=== PATIENT | female | born 1955 | race Caucasian/White ===

== ENCOUNTER 2017-07-14 22:08 | Emergency (ER) | payer MEDICAID, MEDICARE ==
[2017-07-14] MEDS ORDERED: Sodium Chloride 0.9% 10 ML Syringe FLUSH PRN (22:54)
[2017-07-14] MEDS ORDERED: Prochlorperazine 10 MG/2 ML SDV IVPUSH ONE (22:54)
[2017-07-14] MEDS ORDERED: Sodium Chloride 0.9% 1,000 ML IV SCH (23:00)
--- NOTE | 2017-07-15 00:40 | EDM.PDOC ---
ED HPI GENERAL MEDICAL PROBLEM - General Chief Complaint: Genitourinary Problem Stated Complaint: ILLNESS Time Seen by Provider: 07/14/17 22:47 Source of Information: Reports: Patient, Family History Limitations: Reports: No Limitations - History of Present Illness INITIAL COMMENTS - FREE TEXT/NARRATIVE: This patient comes in with the complaint of vomiting diarrhea and fever for 2 days. She said she vomits everything she eats or drinks. She did hold down some breakfast this morning but other than that the vomiting is frequent. She's had copious watery diarrhea for 2 days also. She's had a low-grade fever off and on. Some people thought that she had a seizure earlier today because you're a couple of episodes where she would sort of stare into space and drool a little bit but there is never any kind of tonic-clonic activity. She does have seizures since a stroke several years ago. This lady denies body aches area she coughs a little bit but that's just after she vomits. She denies sore throat she denies abdominal pain and there are no urinary symptoms. This patient's also had some bariatric surgery and I'm uncertain whether or not this was a Joseph -en-Y - Related Data Allergies Allergy/AdvReac Type Severity Reaction Status Date / Time codeine Allergy Severe Difficulty Verified 07/14/17 22:28 Breathing Home Meds: Home Meds Aspirin [Halfprin] 162 mg PO DAILY 03/13/13 [History] Metoprolol Tartrate 12.5 mg PO BID 03/13/13 [History] Warfarin Sliding Scale [Coumadin Sliding Scale] 2.5 mg PO ASDIRECTED 03/13/13 [ History] levETIRAcetam [Keppra] 750 mg PO BID 03/13/13 [History] traZODone 25 mg PO DAILY 10/17/14 [History] Gabapentin [Neurontin] 100 mg PO DAILY 09/16/15 [History] Sertraline [Zoloft] 50 mg PO DAILY 09/16/15 [History] Cyanocobalamin (Vitamin B12) [Vitamin B12] 2,500 mcg PO DAILY 09/18/15 [History] *Ditropan 5 mg PO DAILY 07/14/17 [History] Donepezil [Aricept] 5 mg PO DAILY 07/14/17 [History] Fish Oil/[place]-3 Fatty Acids [Fish Oil] 1,200 mg PO DAILY 07/14/17 [History] Magnesium Oxide [Magnesium] 400 mg PO DAILY 07/14/17 [History] Multivitamin [Daily Multiple Vitamin] 1 tab PO DAILY 07/14/17 [History] Pantoprazole [ProTONIX] 40 mg PO DAILY 07/14/17 [History] Simvastatin 40 mg PO DAILY 07/14/17 [History] Past Medical History HEENT History: Reports: Impaired Vision, Other (See Below) Other HEENT History: Esophageal stricture, food bolus Cardiovascular History: Reports: Heart Murmur, Heart Valve Replacement, High Cholesterol, Hypertension Respiratory History: Reports: Bronchitis, Recurrent, Pneumonia, Recurrent, Sleep Apnea Gastrointestinal History: Reports: Chronic Constipation, GERD, Other (See Below) Other Gastrointestinal History: Last BM 4-22 AM. Abdominal girth 39" Genitourinary History: Reports: Urinary Incontinence DISABILITY AIDE History: Reports: Dysfunctional Uterine Bleeding, , Spontaneous Neurological History: Reports: CVA, Seizure Psychiatric History: Reports: Depression Endocrine/Metabolic History: Reports: Diabetes, Type II Hematologic History: Reports: Blood Transfusion(s), Transfusion Reaction Other Hematologic History: ? high temp - Infectious Disease History Infectious Disease History: Reports: Chicken Pox, Measles, Mumps - Past Surgical History HEENT Surgical History: Reports: Oral Surgery, Tonsillectomy Cardiovascular Surgical History: Reports: Valve Replacement GI Surgical History: Reports: Bariatric Procedure, EGD, Esophageal Dilatation, Other (See Below) Female Surgical History: Reports: D&C, Hysterectomy, Salpingo-Oophorectomy Neurological Surgical History: Reports: None Dermatological Surgical History: Reports: None Social & Family History - Family History Family Medical History: Unobtainable Cardiac: Reports: CAD, High Cholesterol, Hypertension Neurological: Reports: CVA Psychiatric: Reports: Depression - Tobacco Use Smoking Status *Q: Unknown Ever Smoked Years of Tobacco use: 15 Used Tobacco, but Quit: Yes Month Tobacco Last Used: 20 years ago Second Hand Smoke Exposure: Yes - Alcohol Use Days Per Week of Alcohol Use: 0 - Recreational Drug Use Recreational Drug Use: No ED ROS GENERAL - Review of Systems Review Of Systems: ROS reveals no pertinent complaints other than HPI. (See history of present illness for related review of systems) ED EXAM, GI/ABD - Physical Exam Exam: See Below Exam Limited By: No Limitations General Appearance: Alert, WD/WN, Moderate Distress (She sitting up on the stretcher with a wastebasket which she has vomited recently. The vomitus is clear yellowish.) Ears: Normal External Exam Nose: Normal Inspection Throat/Mouth: Normal Inspection, Normal Oropharynx Head: Atraumatic Neck: Normal Inspection Respiratory/Chest: No Respiratory Distress, Lungs Clear Cardiovascular: Normal Peripheral Pulses, Regular Rate, Rhythm, No Murmur GI/Abdominal Exam: Normal Bowel Sounds, Soft, Non-Tender Back Exam: Normal Inspection Extremities: Normal Inspection Neurological: Alert, Oriented, Other (Left arm motor deficit) Psychiatric: Normal Affect Skin Exam: Warm, Dry Course - Vital Signs Last Recorded V/S: Last Vital Signs Temp 37.0 C 07/15/17 00:43 Pulse 59 L 07/15/17 00:43 Resp 14 07/15/17 00:43 BP 154/67 H 07/15/17 00:43 Pulse Ox 98 07/15/17 00:43 - Orders/Labs/Meds Orders: Active Orders 24 hr Category Date Time Status EKG Documentation Completion [RC] ASDIRECTED Care 07/14/17 22:54 Active Chest 2V [CR] Urgent Exams 07/14/17 22:57 Taken Saline Lock Insert [OM.PC] Urgent Oth 07/14/17 22:54 Ordered EKG 12 Lead [EK] Urgent Ther 07/14/17 22:54 Ordered Labs: Laboratory Tests 07/14/17 07/14/17 Range/Units 22:54 23:08 WBC 4.7 (4.5-11.0) K/uL RBC 4.53 (3.30-5.50) M/uL Hgb 14.4 (12.0-15.0) g/dL Hct 44.0 (36.0-48.0) % MCV 97 (80-98) fL MCH 32 H (27-31) pg MCHC 33 (32-36) % Plt Count 103 L (150-400) K/uL Neut % (Auto) 68 H (36-66) % Lymph % (Auto) 23 L (24-44) % [place] % (Auto) 8 H (2-6) % Eos % (Auto) 1 L (2-4) % Baso % (Auto) 0 (0-1) % Sodium 148 (140-148) mmol/L Potassium 4.0 (3.6-5.2) mmol/L Chloride 109 H (100-108) mmol/L Carbon Dioxide 32 (21-32) mmol/L Anion Gap 11.0 (5.0-14.0) mmol/L BUN 22 H D (7-18) mg/dL Creatinine 1.2 H (0.6-1.0) mg/dL Est Cr Clr Drug Dosing 42.62 mL/min Estimated GFR (MDRD) 45 L (>60) Glucose 106 (74-106) mg/dL Calcium 9.1 D (8.5-10.1) mg/dL Total Bilirubin 0.6 (0.2-1.0) mg/dL AST 44 H (15-37) U/L ALT 40 (12-78) U/L Alkaline Phosphatase 76 (46-116) U/L Total Protein 6.6 (6.4-8.2) g/dL Albumin 3.4 (3.4-5.0) g/dL Globulin 3.2 (2.3-3.5) g/dL Albumin/Globulin Ratio 1.1 L (1.2-2.2) Meds: Medications Discontinued Medications Generic Name Dose Route Start Last Admin Trade Name Freq PRN Reason Stop Dose Admin Sodium Chloride 1,000 mls @ 999 mls/hr 07/14/17 23:00 07/14/17 23:11 Normal Saline IV 999 mls/hr ASDIRECTED CAMILLE Administration Prochlorperazine Edisylate 5 mg 07/14/17 22:54 07/14/17 23:12 Compazine IVPUSH 07/14/17 22:55 5 mg ONETIME ONE Administration Sodium Chloride 10 ml 07/14/17 22:54 07/14/17 23:11 Saline Flush FLUSH 10 ml ASDIRECTED PRN Administration Keep Vein Open - Re-Assessments/Exams Free Text/Narrative Re-Assessment/Exam: 07/15/17 07:10 This lady received 1 L IV normal saline and Compazine 5 mg IV. Afterwards she said she felt much better and was ready to go home. I mentioned anti-emetics and she told me that her sister or other significant other was expecting her to use Zofran. Dosage was discussed Departure - Departure Time of Disposition: 00:37 Disposition: Home, Self-Care 01 Condition: Fair Clinical Impression: Viral gastroenteritis - Discharge Information Instructions: Viral Gastroenteritis, Adult Referrals: Libra Paige PA [Primary Care Provider] - Forms: ED Department Discharge Additional Instructions: You appear to have a stomach virus. The viral infection will have to play itself out since there's no specific treatment. It will probably last a couple more days. To control the vomiting take ondansetron (Zofran) 4 mg one or 2 sublingual every 8 hours. The prescription says just 1 but it's okay to take 2 tablets. Be sure to drink plenty of liquids. Use Tylenol if needed for fever. If you're getting worse than return to the ER - My Orders Last 24 Hours: My Active Orders 07/14/17 22:54 EKG Documentation Completion [RC] ASDIRECTED Saline Lock Insert [OM.PC] Urgent EKG 12 Lead [EK] Urgent 07/14/17 22:57 Chest 2V [CR] Urgent - Assessment/Plan Last 24 Hours: My Active Orders 07/14/17 22:54 EKG Documentation Completion [RC] ASDIRECTED Saline Lock Insert [OM.PC] Urgent EKG 12 Lead [EK] Urgent 07/14/17 22:57 Chest 2V [CR] Urgent
[2017-07-15 00:43] VITALS: BP 154/67
--- NOTE | 2017-07-17 10:14 | CR ---
Chest 2V FINDINGS: There are intact sternal wires. The patient has had prior cardiac valve repair. No infiltra jim or effusions are demonstrated. The skeletal structures are unremarkable. IMPRESSION: 1. No acute findings.
== END 2017-07-15 00:45 | disposition home or self-care (01) ==
LOC: JP.ED 22:08
DX: A08.4 Viral intestinal infection, unspecified (principal); E11.9 Type 2 diabetes mellitus without complications; E78.00 Pure hypercholesterolemia, unspecified; F32.9 Major depressive disorder, single episode, unspecified; Z88.5 Allergy status to narcotic agent; Z79.82 Long term (current) use of aspirin; Z79.899 Other long term (current) drug therapy; Z90.710 Acquired absence of both cervix and uterus; Z87.891 Personal history of nicotine dependence
CPT/HCPCS: 36415; 71046; 80053; 85025; 87804; 93005; 96361; 96374; 99284; J0780; J7040; J7050

== ENCOUNTER 2017-08-24 20:32 | Observation (INO) | payer MEDICARE ==
[2017-08-24] MEDS ORDERED: Ondansetron 4 MG/2 ML SDV IVPUSH ONE (22:06)
[2017-08-24] MEDS ORDERED: Sodium Chloride 0.9% 1,000 ML IV SCH (22:15)
[2017-08-24] MEDS ORDERED: Dextrose 5%-Lactated Ringers 1,000 ML IV SCH (23:45)
--- NOTE | 2017-08-25 00:31 | EDM.PDOC ---
ED HPI GENERAL MEDICAL PROBLEM - General Chief Complaint: Gastrointestinal Problem Stated Complaint: THROWING UP Time Seen by Provider: 08/24/17 22:03 Source of Information: Reports: Family (here daughter Dianna ([employer])) - History of Present Illness Onset: Sudden Onset Date: 08/24/17 Onset Time: 15:00 Duration: Constant Location: Reports: Abdomen, Generalized Quality: Reports: Same as Previous Episode Improves with: Reports: None Worsens with: Reports: Eating Context: Reports: Other (hx of gastric bypass and CVA) Associated Symptoms: Reports: Nausea/Vomiting - Related Data Allergies Allergy/AdvReac Type Severity Reaction Status Date / Time codeine Allergy Severe Difficulty Verified 08/24/17 22:07 Breathing Home Meds: Home Meds Aspirin [Halfprin] 162 mg PO DAILY 03/13/13 [History] Metoprolol Tartrate 12.5 mg PO BID 03/13/13 [History] levETIRAcetam [Keppra] 500 mg PO BID 03/13/13 [History] traZODone 25 mg PO DAILY 10/17/14 [History] Gabapentin [Neurontin] 100 mg PO DAILY 09/16/15 [History] Sertraline [Zoloft] 150 mg PO DAILY 09/16/15 [History] Cyanocobalamin (Vitamin B12) [Vitamin B12] 2,500 mcg PO DAILY 09/18/15 [History] *Ditropan 5 mg PO DAILY 07/14/17 [History] Donepezil [Aricept] 5 mg PO DAILY 07/14/17 [History] Fish Oil/[place]-3 Fatty Acids [Fish Oil] 1,200 mg PO DAILY 07/14/17 [History] Magnesium Oxide [Magnesium] 400 mg PO DAILY 07/14/17 [History] Multivitamin [Daily Multiple Vitamin] 1 tab PO DAILY 07/14/17 [History] Pantoprazole [ProTONIX] 40 mg PO DAILY 07/14/17 [History] Simvastatin 40 mg PO DAILY 07/14/17 [History] Cholecalciferol (Vitamin D3) [Vitamin D3] 1 tab PO BID 08/24/17 [History] Lisinopril 10 mg PO DAILY 08/24/17 [History] Ondansetron [Zofran ODT] 4 mg PO ASDIRECTED PRN 08/24/17 [History] Warfarin [Coumadin] 1.25 mg PO ASDIRECTED 08/24/17 [History] Warfarin [Coumadin] 2.5 mg PO ASDIRECTED 08/24/17 [History] Past Medical History HEENT History: Reports: Impaired Vision, Other (See Below) Other HEENT History: Esophageal stricture, food bolus Cardiovascular History: Reports: Heart Murmur, Heart Valve Replacement, High Cholesterol, Hypertension Respiratory History: Reports: Bronchitis, Recurrent, Pneumonia, Recurrent, Sleep Apnea Gastrointestinal History: Reports: Chronic Constipation, GERD, Other (See Below) Other Gastrointestinal History: Last BM 4-22 AM. Abdominal girth 39" Genitourinary History: Reports: Urinary Incontinence BANK MESSENGER History: Reports: Dysfunctional Uterine Bleeding, , Spontaneous Neurological History: Reports: CVA, Seizure, Other (See Below) Other Neuro History: vascular dementia Psychiatric History: Reports: Depression, Other (See Below) Other Psychiatric History: vascular dementia Endocrine/Metabolic History: Reports: Diabetes, Type II Hematologic History: Reports: Blood Transfusion(s), Transfusion Reaction Other Hematologic History: ? high temp - Infectious Disease History Infectious Disease History: Reports: Chicken Pox, Measles, Mumps - Past Surgical History HEENT Surgical History: Reports: Oral Surgery, Tonsillectomy Cardiovascular Surgical History: Reports: Valve Replacement GI Surgical History: Reports: Bariatric Procedure, EGD, Esophageal Dilatation, Other (See Below) Female Surgical History: Reports: D&C, Hysterectomy, Salpingo-Oophorectomy Dermatological Surgical History: Reports: None Social & Family History - Family History Family Medical History: Unobtainable Cardiac: Reports: CAD, High Cholesterol, Hypertension Neurological: Reports: CVA Psychiatric: Reports: Depression - Tobacco Use Smoking Status *Q: Never Smoker Years of Tobacco use: 15 Used Tobacco, but Quit: Yes Month/Year Tobacco Last Used: 20 years ago Second Hand Smoke Exposure: No - Caffeine Use Caffeine Use: Reports: None - Alcohol Use Days Per Week of Alcohol Use: 0 - Recreational Drug Use Recreational Drug Use: No - Living Situation & Occupation Living situation: Reports: , Extended Care Facility Occupation: Disabled ( of 42 years of Cancer in the Fall, family had her moved into [facility] [place] in 2017.) ED ROS GENERAL - Review of Systems Review Of Systems: Unable To Obtain (Daughter Dianna give report of present and past illness and or disease) Constitutional: Reports: Other (sudden onset of nausea and vomiting) HEENT: Reports: No Symptoms (ate morning breakfast.) GI/Abdominal: Reports: Nausea, Vomiting Neurological: Reports: Pre-Existing Deficit ED EXAM, GENERAL - Physical Exam Exam: See Below Exam Limited By: Altered Mental Status (dementia) General Appearance: Alert, Moderate Distress (currently vomiting in waiting room , in ER room.), Thin Eye Exam: Bilateral Eye: EOMI, Normal Inspection, PERRL Ears: Normal External Exam Nose: Normal Inspection, Normal Mucosa, No Blood Throat/Mouth: Normal Inspection, Normal Lips, Normal Gums, Normal Oropharynx, Normal Voice, No Airway Compromise, Other (no teeth) Head: Atraumatic, Normocephalic Neck: Normal Inspection, Supple, Non-Tender, Full Range of Motion Respiratory/Chest: No Respiratory Distress, Lungs Clear, Normal Breath Sounds, No Accessory Muscle Use, Chest Non-Tender Cardiovascular: Normal Peripheral Pulses, Regular Rate, Rhythm, No Edema, No Murmur Peripheral Pulses: 2+: Radial (L), Radial (R) GI/Abdominal: Normal Bowel Sounds, Soft, Non-Tender, No Distention, No Abnormal Bruit, No Mass (Female) Exam: Deferred Rectal (Female) Exam: Deferred Back Exam: Normal Inspection, Full Range of Motion Extremities: Normal Inspection, Normal Range of Motion, Non-Tender, No Pedal Edema Neurological: Alert, Memory Loss Remote Events, Memory Loss Recent Events, Sensory/Motor Deficit Psychiatric: Normal Affect, Normal Mood Skin Exam: Warm, Dry, Intact, Normal Color, No Rash Lymphatic: No Adenopathy Course - Vital Signs Last Recorded V/S: Last Vital Signs Temp 37.1 C 08/24/17 22:10 Pulse 76 08/24/17 22:16 Resp 16 08/24/17 22:10 BP 193/94 H 08/24/17 22:16 Pulse Ox 98 08/24/17 22:16 - Orders/Labs/Meds Orders: Active Orders 24 hr Category Date Time Status EKG Documentation Completion [RC] ASDIRECTED Care 08/24/17 23:11 Active Abdomen Pelvis wo Cont [CT] Stat Exams 08/24/17 23:32 Taken Head wo Cont [CT] Stat Exams 08/24/17 22:03 Taken UA W/MICROSCOPIC [URIN] Urgent Lab 08/24/17 22:05 Ordered Dextrose 5%-Lactated Ringers 1,000 ml Med 08/24/17 23:45 Active IV ASDIRECTED Sodium Chloride 0.9% [Normal Saline] 1,000 ml Med 08/24/17 22:15 Active IV ASDIRECTED EKG 12 Lead [EK] Urgent Ther 08/24/17 23:11 Ordered Medication Orders Sodium Chloride (Normal Saline) 1,000 mls @ 999 mls/hr IV ASDIRECTED CAMIL[place] Last Admin: 08/24/17 22:40 Dose: 999 mls/hr Dextrose/Lactated Ringer's (Dextrose 5%-Lactated Ringers) 1,000 mls @ 100 mls/ hr IV ASDIRECTED [place] Labs: Laboratory Tests 08/24/17 08/24/17 08/24/17 Range/Units 22:39 22:39 22:39 WBC 5.5 (4.5-11.0) K/uL RBC 4.67 (3.30-5.50) M/uL Hgb 14.9 (12.0-15.0) g/dL Hct 45.4 (36.0-48.0) % MCV 97 (80-98) fL MCH 32 H (27-31) pg MCHC 33 (32-36) % Plt Count 110 L (150-400) K/uL Neut % (Auto) 61 (36-66) % Lymph % (Auto) 28 (24-44) % [place] % (Auto) 9 H (2-6) % Eos % (Auto) 2 (2-4) % Baso % (Auto) 0 (0-1) % PT 24.9 H (9.5-12.0) sec INR 2.25 H D (0.80-1.20) Sodium 147 (140-148) mmol/L Potassium 3.9 (3.6-5.2) mmol/L Chloride 108 (100-108) mmol/L Carbon Dioxide 33 H (21-32) mmol/L Anion Gap 9.9 (5.0-14.0) mmol/L BUN 21 H (7-18) mg/dL Creatinine 1.1 H (0.6-1.0) mg/dL Est Cr Clr Drug Dosing 37.11 mL/min Estimated GFR (MDRD) 50 L (>60) Glucose 98 (74-106) mg/dL Lactic Acid (0.4-2.0) mmol/L Calcium 8.9 (8.5-10.1) mg/dL Total Bilirubin 0.4 (0.2-1.0) mg/dL AST 51 H (15-37) U/L ALT 43 (12-78) U/L Alkaline Phosphatase 82 (46-116) U/L Troponin I 0.075 H* (0.000-0.056) ng/mL Total Protein 7.0 (6.4-8.2) g/dL Albumin 3.7 (3.4-5.0) g/dL Globulin 3.3 (2.3-3.5) g/dL Albumin/Globulin Ratio 1.1 L (1.2-2.2) Amylase 104 (25-115) U/L Lipase 145 (73-393) U/L 08/24/17 Range/Units 22:39 WBC (4.5-11.0) K/uL RBC (3.30-5.50) M/uL Hgb (12.0-15.0) g/dL Hct (36.0-48.0) % MCV (80-98) fL MCH (27-31) pg MCHC (32-36) % Plt Count (150-400) K/uL Neut % (Auto) (36-66) % Lymph % (Auto) (24-44) % [place] % (Auto) (2-6) % Eos % (Auto) (2-4) % Baso % (Auto) (0-1) % PT (9.5-12.0) sec INR (0.80-1.20) Sodium (140-148) mmol/L Potassium (3.6-5.2) mmol/L Chloride (100-108) mmol/L Carbon Dioxide (21-32) mmol/L Anion Gap (5.0-14.0) mmol/L BUN (7-18) mg/dL Creatinine (0.6-1.0) mg/dL Est Cr Clr Drug Dosing mL/min Estimated GFR (MDRD) (>60) Glucose (74-106) mg/dL Lactic Acid 1.0 (0.4-2.0) mmol/L Calcium (8.5-10.1) mg/dL Total Bilirubin (0.2-1.0) mg/dL AST (15-37) U/L ALT (12-78) U/L Alkaline Phosphatase (46-116) U/L Troponin I (0.000-0.056) ng/mL Total Protein (6.4-8.2) g/dL Albumin (3.4-5.0) g/dL Globulin (2.3-3.5) g/dL Albumin/Globulin Ratio (1.2-2.2) Amylase (25-115) U/L Lipase (73-393) U/L Meds: Medications Generic Name Dose Route Start Last Admin Trade Name Freq PRN Reason Stop Dose Admin Sodium Chloride 1,000 mls @ 999 mls/hr 08/24/17 22:15 08/24/17 22:40 Normal Saline IV 999 mls/hr ASDIRECTED [place] Administration Dextrose/Lactated Ringer's 1,000 mls @ 100 mls/hr 08/24/17 23:45 Dextrose 5%-Lactated Ringers IV ASDIRECTED [place] Discontinued Medications Generic Name Dose Route Start Last Admin Trade Name Freq PRN Reason Stop Dose Admin Ondansetron HCl 4 mg 08/24/17 22:06 08/24/17 22:42 Zofran IVPUSH 08/24/17 22:07 4 mg ONETIME ONE Administration - Re-Assessments/Exams Free Text/Narrative Re-Assessment/Exam: 08/25/17 00:37 evaluation for cuases of nausea and vomiting -cbc, cmp, ua, troponin, inr, amyulase, lipas head CT Abdomen-pelvis CT reports: -Head CT normal, no evidence of an acute intracranial hemorrhage -Abdomen-pelvis CT: pending lab; critical; troponin 0.075 plan; admit to ICU med-surg overflow; dx elevated troponin rule out ID Daughter Dianna here; agrees with plan of care Departure - Departure Time of Disposition: 00:43 Disposition: Admitted As Inpatient 66 Condition: Good Clinical Impression: Elevated troponin I level, Vomiting - Discharge Information - My Orders Last 24 Hours: My Active Orders 08/24/17 22:03 Head wo Cont [CT] Stat 08/24/17 22:05 UA W/MICROSCOPIC [URIN] Urgent 08/24/17 22:15 Sodium Chloride 0.9% [Normal Saline] 1,000 ml IV ASDIRECTED 08/24/17 23:11 EKG Documentation Completion [RC] ASDIRECTED EKG 12 Lead [EK] Urgent 08/24/17 23:32 Abdomen Pelvis wo Cont [CT] Stat 08/24/17 23:45 Dextrose 5%-Lactated Ringers 1,000 ml IV ASDIRECTED - Assessment/Plan Last 24 Hours: My Active Orders 08/24/17 22:03 Head wo Cont [CT] Stat 08/24/17 22:05 UA W/MICROSCOPIC [URIN] Urgent 08/24/17 22:15 Sodium Chloride 0.9% [Normal Saline] 1,000 ml IV ASDIRECTED 08/24/17 23:11 EKG Documentation Completion [RC] ASDIRECTED EKG 12 Lead [EK] Urgent 08/24/17 23:32 Abdomen Pelvis wo Cont [CT] Stat 08/24/17 23:45 Dextrose 5%-Lactated Ringers 1,000 ml IV ASDIRECTED
[2017-08-25] MEDS ORDERED: oxyCODONE 5 MG Tab PO PRN (00:37)
[2017-08-25] MEDS ORDERED: Acetaminophen 325 MG Tab PO PRN (00:37)
[2017-08-25] MEDS ORDERED: Nitroglycerin 0.4 MG Tab.SL SL PRN (00:37)
[2017-08-25] MEDS ORDERED: LORazepam 2 MG/ML SDV IV PRN (00:37)
[2017-08-25] MEDS ORDERED: Ondansetron 4 MG Tab.DIS PO PRN (00:37)
[2017-08-25] MEDS ORDERED: Ondansetron 4 MG/2 ML SDV IV PRN (00:37)
[2017-08-25] MEDS ORDERED: levETIRAcetam 250 MG Tab PO SCH (00:37)
[2017-08-25] MEDS ORDERED: Morphine 2 MG/ML Syringe IVPUSH PRN (00:37)
[2017-08-25] MEDS ORDERED: Albuterol 0.083% 2.5 MG/3 ML Neb Soln NEB PRN (00:37)
--- NOTE | 2017-08-25 00:44 | PCM.HP ---
H&P History of Present Illness - General Date of Service: 08/24/17 Admit Problem/Dx: Admission Diagnosis/Problem Admission Diagnosis/Problem Elevated troponin I level Source of Information: Family (shena Bustamante) History Limitations: Reports: No Limitations - History of Present Illness Initial Comments - Free Text/Narative: nausea and vomiting since 3 pm. brought to ER by Shena Bustamante. Niranjan is actively vomiting in waiting room and er. hx of gastric bypass, dementia,cva -Long Term; Memory Vilma Blackwell. Onset of Symptoms: Reports: Today Symptom Onset Date: 08/24/17 Symptom Onset Time: 15:30 Duration of Symptoms: Reports: Hour(s): Location: Reports: Abdomen Quality: Reports: Same as Previous Episode Severity: Moderate Improves with: Reports: Medication Worsens with: Reports: Eating Associated Symptoms: Reports: Nausea/Vomiting - Related Data Allergies/Adverse Reactions: Allergies Allergy/AdvReac Type Severity Reaction Status Date / Time codeine Allergy Severe Difficulty Verified 08/24/17 22:07 Breathing Home Medications: Home Meds Aspirin [Halfprin] 162 mg PO DAILY 03/13/13 [History] Metoprolol Tartrate 12.5 mg PO BID 03/13/13 [History] levETIRAcetam [Keppra] 500 mg PO BID 03/13/13 [History] traZODone 25 mg PO DAILY 10/17/14 [History] Gabapentin [Neurontin] 100 mg PO DAILY 09/16/15 [History] Sertraline [Zoloft] 150 mg PO DAILY 09/16/15 [History] Cyanocobalamin (Vitamin B12) [Vitamin B12] 2,500 mcg PO DAILY 09/18/15 [History] *Ditropan 5 mg PO DAILY 07/14/17 [History] Donepezil [Aricept] 5 mg PO DAILY 07/14/17 [History] Fish Oil/Hazel-3 Fatty Acids [Fish Oil] 1,200 mg PO DAILY 07/14/17 [History] Magnesium Oxide [Magnesium] 400 mg PO DAILY 07/14/17 [History] Multivitamin [Daily Multiple Vitamin] 1 tab PO DAILY 07/14/17 [History] Pantoprazole [ProTONIX] 40 mg PO DAILY 07/14/17 [History] Simvastatin 40 mg PO DAILY 07/14/17 [History] Cholecalciferol (Vitamin D3) [Vitamin D3] 1 tab PO BID 08/24/17 [History] Lisinopril 10 mg PO DAILY 08/24/17 [History] Ondansetron [Zofran ODT] 4 mg PO ASDIRECTED PRN 08/24/17 [History] Warfarin [Coumadin] 1.25 mg PO ASDIRECTED 08/24/17 [History] Warfarin [Coumadin] 2.5 mg PO ASDIRECTED 08/24/17 [History] Past Medical History HEENT History: Reports: Impaired Vision, Other (See Below) Other HEENT History: Esophageal stricture, food bolus Cardiovascular History: Reports: Heart Murmur, Heart Valve Replacement, High Cholesterol, Hypertension Respiratory History: Reports: Bronchitis, Recurrent, Pneumonia, Recurrent, Sleep Apnea Gastrointestinal History: Reports: Chronic Constipation, GERD, Other (See Below) Other Gastrointestinal History: Last BM 4-22 AM. Abdominal girth 39" Genitourinary History: Reports: Urinary Incontinence PAVER History: Reports: Dysfunctional Uterine Bleeding, , Spontaneous Neurological History: Reports: CVA, Seizure, Other (See Below) Other Neuro History: vascular dementia Psychiatric History: Reports: Depression, Other (See Below) Other Psychiatric History: vascular dementia Endocrine/Metabolic History: Reports: Diabetes, Type II Hematologic History: Reports: Blood Transfusion(s), Transfusion Reaction Other Hematologic History: ? high temp - Infectious Disease History Infectious Disease History: Reports: Chicken Pox, Measles, Mumps - Past Surgical History HEENT Surgical History: Reports: Oral Surgery, Tonsillectomy Cardiovascular Surgical History: Reports: Valve Replacement GI Surgical History: Reports: Bariatric Procedure, EGD, Esophageal Dilatation, Other (See Below) Female Surgical History: Reports: D&C, Hysterectomy, Salpingo-Oophorectomy Dermatological Surgical History: Reports: None Social & Family History - Family History Family Medical History: Unobtainable Cardiac: Reports: CAD, High Cholesterol, Hypertension Neurological: Reports: CVA Psychiatric: Reports: Depression - Tobacco Use Smoking Status *Q: Never Smoker Years of Tobacco use: 15 Used Tobacco, but Quit: Yes Month/Year Tobacco Last Used: 20 years ago Second Hand Smoke Exposure: No - Caffeine Use Caffeine Use: Reports: None - Alcohol Use Days Per Week of Alcohol Use: 0 - Recreational Drug Use Recreational Drug Use: No - Living Situation & Occupation Living situation: Reports: , Extended Care Facility Occupation: Disabled ( of 42 years of Cancer in the Fall, family had her moved into [facility] [place] in 2017.) H&P Review of Systems - Review of Systems: Review Of Systems: Unable To Obtain (daughter gives report) General: Reports: Other (vomiting since 1529.) HEENT: Reports: No Symptoms Pulmonary: Reports: No Symptoms Cardiovascular: Reports: No Symptoms Gastrointestinal: Reports: Vomiting Genitourinary: Reports: Incontinence Musculoskeletal: Reports: Other (contractures of fingers and hands.) Skin: Reports: No Symptoms Psychiatric: Reports: Confusion (dementia) Neurological: Reports: Pre-Existing Deficit (dementia) Hematologic/Lymphatic: Reports: Easy Bleeding (coumadin therapy) Immunologic: Reports: No Symptoms Exam - Exam Exam: See Below - Vital Signs Vital Signs: Last Vital Signs Temp 37.1 C 08/24/17 22:10 Pulse 76 08/24/17 22:16 Resp 16 08/24/17 22:10 BP 193/94 H 08/24/17 22:16 Pulse Ox 98 08/24/17 22:16 Weight: 56.5 kg - Exam General: Cooperative, Mild Distress (given medication for nausea, no further nausea at this time.), Other (appears much older than stated age.) HEENT: PERRLA, Conjunctiva Clear, EACs Clear, EOMI, Hearing Intact, Mucosa Moist & [place], Nares Patent, Normal Nasal Septum Neck: Supple, Trachea Midline Lungs: Clear to Auscultation, Normal Respiratory Effort Cardiovascular: Regular Rate, Regular Rhythm GI/Abdominal Exam: Normal Bowel Sounds, Soft, Non-Tender, No Distention (Female) Exam: Deferred Rectal (Female) Exam: Deferred Back Exam: Normal Inspection, Full Range of Motion Extremities: Pedal Edema, Limited Range of Motion (hands and arms stiff, contractures of fingers.) Peripheral Pulses: 2+: Radial (L), Radial (R) Skin: Warm, Dry, Intact Neuro Extensive - Mental Status: Alert (awake), Disorientation to Person, Memory Loss-Remote Events, Memory Loss-Recent Events, Slow Response to Commands (due to CVAx2, seizure disorder) Neuro Extensive - Motor, Sensory, Reflexes: Motor/Sensory Deficits Psychiatric: Other (flat affect. ) - Patient Data Lab Results Last 24 hrs: Laboratory Results - last 24 hr 08/24/17 08/24/17 08/24/17 Range/Units 22:39 22:39 22:39 WBC 5.5 (4.5-11.0) K/uL RBC 4.67 (3.30-5.50) M/uL Hgb 14.9 (12.0-15.0) g/dL Hct 45.4 (36.0-48.0) % MCV 97 (80-98) fL MCH 32 H (27-31) pg MCHC 33 (32-36) % Plt Count 110 L (150-400) K/uL Neut % (Auto) 61 (36-66) % Lymph % (Auto) 28 (24-44) % [place] % (Auto) 9 H (2-6) % Eos % (Auto) 2 (2-4) % Baso % (Auto) 0 (0-1) % PT 24.9 H (9.5-12.0) sec INR 2.25 H D (0.80-1.20) Sodium 147 (140-148) mmol/L Potassium 3.9 (3.6-5.2) mmol/L Chloride 108 (100-108) mmol/L Carbon Dioxide 33 H (21-32) mmol/L Anion Gap 9.9 (5.0-14.0) mmol/L BUN 21 H (7-18) mg/dL Creatinine 1.1 H (0.6-1.0) mg/dL Est Cr Clr Drug Dosing 37.11 mL/min Estimated GFR (MDRD) 50 L (>60) Glucose 98 (74-106) mg/dL Lactic Acid (0.4-2.0) mmol/L Calcium 8.9 (8.5-10.1) mg/dL Total Bilirubin 0.4 (0.2-1.0) mg/dL AST 51 H (15-37) U/L ALT 43 (12-78) U/L Alkaline Phosphatase 82 (46-116) U/L Troponin I 0.075 H* (0.000-0.056) ng/mL Total Protein 7.0 (6.4-8.2) g/dL Albumin 3.7 (3.4-5.0) g/dL Globulin 3.3 (2.3-3.5) g/dL Albumin/Globulin Ratio 1.1 L (1.2-2.2) Amylase 104 (25-115) U/L Lipase 145 (73-393) U/L 08/24/17 Range/Units 22:39 WBC (4.5-11.0) K/uL RBC (3.30-5.50) M/uL Hgb (12.0-15.0) g/dL Hct (36.0-48.0) % MCV (80-98) fL MCH (27-31) pg MCHC (32-36) % Plt Count (150-400) K/uL Neut % (Auto) (36-66) % Lymph % (Auto) (24-44) % [place] % (Auto) (2-6) % Eos % (Auto) (2-4) % Baso % (Auto) (0-1) % PT (9.5-12.0) sec INR (0.80-1.20) Sodium (140-148) mmol/L Potassium (3.6-5.2) mmol/L Chloride (100-108) mmol/L Carbon Dioxide (21-32) mmol/L Anion Gap (5.0-14.0) mmol/L BUN (7-18) mg/dL Creatinine (0.6-1.0) mg/dL Est Cr Clr Drug Dosing mL/min Estimated GFR (MDRD) (>60) Glucose (74-106) mg/dL Lactic Acid 1.0 (0.4-2.0) mmol/L Calcium (8.5-10.1) mg/dL Total Bilirubin (0.2-1.0) mg/dL AST (15-37) U/L ALT (12-78) U/L Alkaline Phosphatase (46-116) U/L Troponin I (0.000-0.056) ng/mL Total Protein (6.4-8.2) g/dL Albumin (3.4-5.0) g/dL Globulin (2.3-3.5) g/dL Albumin/Globulin Ratio (1.2-2.2) Amylase (25-115) U/L Lipase (73-393) U/L Result Diagrams: 08/24/17 22:39 08/24/17 22:39 - Problem List (1) Elevated troponin I level SNOMED Code(s): 141109772 ICD Code: R74.8 - ABNORMAL LEVELS OF OTHER SERUM ENZYMES Status: Acute Priority: High Current Visit: Yes (2) Vomiting SNOMED Code(s): 490379455 ICD Code: R11.10 - VOMITING, UNSPECIFIED Status: Acute Priority: High Current Visit: Yes (3) CVA, old, cognitive deficits SNOMED Code(s): 886646306, 995669643 ICD Code: I69.31 - COGNITIVE DEFICITS FOLLOWING CEREBRAL INFARCT * DO NOT USE * Status: Chronic Priority: Medium Current Visit: No (4) Seizure disorder as sequela of cerebrovascular accident SNOMED Code(s): 112567234347979 ICD Code: I69.398 - OTHER SEQUELAE OF CEREBRAL INFARCTION; G40.909 - EPILEPSY , UNSP, NOT INTRACTABLE, WITHOUT STATUS EPILEPTICUS Status: Chronic Priority : Medium Current Visit: No Problem List Initiated/Reviewed/Updated: Yes Orders Last 24hrs: Active Orders 24 hr Category Date Time Status Patient Status [ADT] Routine ADT 08/25/17 00:37 Active Bedrest Bathroom Privileges [RC] ASDIRECTED Care 08/25/17 00:37 Active Cardiac Monitoring [RC] .As Directed Care 08/25/17 00:37 Active EKG Documentation Completion [RC] ASDIRECTED Care 08/25/17 00:37 Active Intake and Output [RC] QSHIFT Care 08/25/17 00:37 Active Notify Provider Vital Signs [RC] ASDIRECTED Care 08/25/17 00:37 Active Oxygen Therapy [RC] PRN Care 08/25/17 00:37 Active Pulse Oximetry [RC] PRN Care 08/25/17 00:37 Active RT Aerosol Therapy [RC] ASDIRECTED Care 08/25/17 00:37 Active VTE/DVT Education [RC] Per Unit Routine Care 08/25/17 00:37 Active Vital Signs [RC] Q4H Care 08/25/17 00:37 Active Consult to Spiritual Care [CONS] Routine Cons 08/25/17 23:56 Active Nothing per Oral Now Diet [DIET] Diet 08/25/17 Breakfast Active Abdomen Pelvis wo Cont [CT] Stat Exams 08/24/17 23:32 Taken Head wo Cont [CT] Stat Exams 08/24/17 22:03 Taken BASIC METABOLIC PANEL,BMP [CHEM] AM Lab 08/25/17 05:11 Ordered CBC WITH AUTO DIFF [HEME] AM Lab 08/25/17 05:11 Ordered INR,PT,PROTHROMBIN TIME [COAG] AM Lab 08/25/17 05:11 Ordered TROPONIN I [CHEM] AM Lab 08/25/17 05:11 Ordered UA W/MICROSCOPIC [URIN] Urgent Lab 08/24/17 22:05 Ordered Acetaminophen [Tylenol] Med 08/25/17 00:37 Ordered 650 mg PO Q4H PRN Albuterol [Proventil Neb Soln] Med 08/25/17 00:37 Ordered 2.5 mg NEB Q4H PRN Dextrose 5%-Lactated Ringers 1,000 ml Med 08/24/17 23:45 Active IV ASDIRECTED Donepezil [Aricept] Med 08/25/17 09:00 Ordered 5 mg PO DAILY Gabapentin [Neurontin] Med 08/25/17 09:00 Ordered 100 mg PO DAILY LORazepam [Ativan] Med 08/25/17 00:37 Ordered 1 mg IV Q6H PRN Lisinopril [Prinivil] Med 08/25/17 09:00 Ordered 10 mg PO DAILY Magnesium Oxide [Magnesium] Med 08/25/17 09:00 Ordered 400 mg PO DAILY Metoprolol Tartrate [Lopressor] Med 08/25/17 09:00 Ordered 12.5 mg PO BID Morphine Med 08/25/17 00:37 Ordered 2 mg IVPUSH Q2H PRN Nitroglycerin [Nitrostat] Med 08/25/17 00:37 Ordered 0.4 mg SL Q5M PRN Ondansetron [Zofran ODT] Med 08/25/17 00:37 Ordered 4 mg PO Q6H PRN Ondansetron [Zofran] Med 08/25/17 00:37 Ordered 4 mg IV Q4H PRN Pantoprazole [ProTONIX] Med 08/25/17 09:00 Ordered 40 mg PO DAILY Sertraline [Zoloft] Med 08/25/17 09:00 Ordered 150 mg PO DAILY Simvastatin [Simvastatin] Med 08/25/17 09:00 Ordered 40 mg PO DAILY Warfarin [Coumadin] Med 08/25/17 00:37 Ordered 1.25 mg PO ASDIRECTED Warfarin [Coumadin] Med 08/25/17 00:37 Ordered 2.5 mg PO ASDIRECTED levETIRAcetam [Keppra] Med 08/25/17 00:37 Ordered 500 mg PO BID oxyCODONE Med 08/25/17 00:37 Ordered 5 mg PO Q4H PRN traZODone Med 08/25/17 09:00 Ordered 25 mg PO DAILY Resuscitation Status Routine Resus Stat 08/24/17 23:56 Ordered EKG 12 Lead [EK] Urgent Ther 08/24/17 23:11 Ordered EKG 12 Lead [EK] Urgent Ther 08/25/17 05:10 Ordered Medication Orders Acetaminophen (Tylenol) 650 mg PO Q4H PRN PRN Reason: Pain (Mild 1-3)/fever Albuterol (Proventil Neb Soln) 2.5 mg NEB Q4H PRN PRN Reason: Shortness Of Breath/wheezing Gabapentin (Neurontin) 100 mg PO DAILY [facility] Dextrose/Lactated Ringer's (Dextrose 5%-Lactated Ringers) 1,000 mls @ 100 mls/ hr IV ASDIRECTED [facility] Last Admin: 08/24/17 23:43 Dose: 100 mls/hr Lisinopril (Prinivil) 10 mg PO DAILY [facility] Lorazepam (Ativan) 1 mg IV Q6H PRN PRN Reason: Nausea/Vomiting Metoprolol Tartrate (Lopressor) 12.5 mg PO BID [facility] Morphine Sulfate (Morphine) 2 mg IVPUSH Q2H PRN PRN Reason: Pain (severe 7-10) Nitroglycerin (Nitrostat) 0.4 mg SL Q5M PRN PRN Reason: Chest Pain Stop: 08/26/17 00:03 Non-Formulary Medication (Donepezil [Aricept]) 5 mg PO DAILY [facility] Non-Formulary Medication (Levetiracetam [Keppra]) 500 mg PO BID [facility] Non-Formulary Medication (Magnesium Oxide [Magnesium]) 400 mg PO DAILY [facility] Non-Formulary Medication (Simvastatin [Simvastatin]) 40 mg PO DAILY [facility] Ondansetron HCl (Zofran Odt) 4 mg PO Q6H PRN PRN Reason: Nausea able to take PO Ondansetron HCl (Zofran) 4 mg IV Q4H PRN PRN Reason: Nausea/Vomiting Oxycodone HCl (Oxycodone) 5 mg PO Q4H PRN PRN Reason: Pain (moderate 4-6) Pantoprazole Sodium (Protonix) 40 mg PO DAILY [facility] Sertraline HCl (Zoloft) 150 mg PO DAILY [facility] Trazodone HCl (Trazodone) 25 mg PO DAILY [facility] Warfarin Sodium (Coumadin) 1.25 mg PO ASDIRECTED [facility] Warfarin Sodium (Coumadin) 2.5 mg PO ASDIRECTED [facility] Assessment/Plan Comment:: ASSESSMENT / PLAN -This is a 62 year old female present to ER with complaints of sudden onset of nausea and vomiting starting in 3 PM. While in ER, Mrs. Díaz had CBC, CMP,AMYLASE, LIPASE, INR, URINE, TROPONIN. EKG. CT scan of head is negative for acute pathogy. CT scan of abdomen pelvis pending report. while in ER given one liter of normal saline, followed by D5LR at 100ml/hr. Zofran 4mg IV no further nausea and vomiting is noted. will plan to repeat labs and ekg in am. Plan Elevated Troponin Dehyration -Admit to ICU Med Surg overflow for further monitoring -Troponin cardiac enzyme at 5 AM and 1100 am -orders for nitroglycerin 0.4 sublingual when necessary chest pain -Telemetry -Oxygen per nasal cannula -IV fluids for rehydration D5LR at 100 mL per hour -Advise to notify nurses of any chest pain or other symptoms -And a.m. labs: CBC, BMP, troponin Maintenance issues -Orders home meds: noted -Nutrition: NPO -Smith catheter not indicated at this time -DVT: Coumadin -GI Prophalaxis; Protonix 40mg daily CODE STATUS: DNR/DNI Admission status: Admit to Observation -I expect this patient to stay less than 24 hours, not to exceed 96 hours for evaluation and management of this problem. Disposition: [facility] Primary care provider: CJ Jaquez Hospitalist: Dr. Bocanegra
[2017-08-25] MEDS: Cephalexin 250 MG Cap PO SCH ×2 (02:18→09:21)
[2017-08-25] MEDS ORDERED: Pantoprazole 40 MG Tab.CR PO SCH (07:30)
[2017-08-25] MEDS ORDERED: traZODone 50 MG Tab PO SCH (09:00)
[2017-08-25] MEDS ORDERED: Donepezil 10 MG Tab PO SCH (09:00)
[2017-08-25] MEDS ORDERED: Sertraline 50 MG Tab PO SCH (09:00)
[2017-08-25] MEDS ORDERED: Gabapentin 100 MG Cap PO SCH (09:00)
[2017-08-25] MEDS ORDERED: Metoprolol Tartrate 25 MG Tab PO SCH (09:00)
[2017-08-25] MEDS ORDERED: Magnesium Oxide 400 MG Tab PO SCH (09:00)
[2017-08-25] MEDS ORDERED: Lisinopril 10 MG Tab PO SCH (09:00)
[2017-08-25 09:32] VITALS: BP 139/66
--- NOTE | 2017-08-25 12:03 | PCM.DCSUM1 ---
Discharge Summary - Hospital Course Brief History: 62-year-old female with history of cerebrovascular disease, seizure disorder secondary to cerebrovascular disease and dementia who presented with nausea and vomiting and was admitted for management of urinary tract infection with nausea vomiting and incidentally noted mild troponin elevation. - Discharge Data Discharge Date: 08/25/17 Discharge Disposition: Home, Self-Care 01 Condition: Fair - Discharge Diagnosis/Problem(s) (1) Acute cystitis without hematuria SNOMED Code(s): 35524273 ICD Code: N30.00 - ACUTE CYSTITIS WITHOUT HEMATURIA Status: Acute Current Visit: Yes (2) Vomiting SNOMED Code(s): 595439319 ICD Code: R11.10 - VOMITING, UNSPECIFIED Status: Acute Priority: High Current Visit: Yes (3) Elevated troponin I level SNOMED Code(s): 946675326 ICD Code: R74.8 - ABNORMAL LEVELS OF OTHER SERUM ENZYMES Status: Acute Priority: High Current Visit: Yes (4) CVA, old, cognitive deficits SNOMED Code(s): 874296957, 945916113 ICD Code: I69.31 - COGNITIVE DEFICITS FOLLOWING CEREBRAL INFARCT * DO NOT USE * Status: Chronic Priority: Medium Current Visit: No (5) Bariatric surgery status SNOMED Code(s): 895226331, 453589909, 846913235 ICD Code: Z98.84 - BARIATRIC SURGERY STATUS Status: Chronic Current Visit : No - Patient Summary/Data Consults: Consultations 08/25/17 23:56 Consult to Spiritual Care [CONS] Routine Labs Pending at D/C: Final results of urine culture Hospital Course: Sima presented to the emergency room from [facility] with nausea and vomiting. Workup in the emergency room was suggestive of a urinary tract infection and also noted was a mild troponin elevation. The nausea and vomiting were thought secondary to the infection and the mild troponin elevation was thought secondary to dehydration. She was started on IV fluids and antibiotics and admitted to the hospital for further management. Overnight her nausea and vomiting resolved. Her troponin level the morning after admission is essentially stable from that taken at the time of presentation. Symptomatically she was feeling well and did not have abdominal pain. We initiated a mechanical soft diet the morning after admission and she tolerated this well. We did get a third troponin prior to discharge and this was back in the normal range following hydration. I suspect the very minor elevation was a demand ischemia in the setting of dehydration following vomiting. There were no other signs to suggest sepsis in the setting of urinary tract infection. Her urine culture is pending at this time but she is getting better with her current antibiotics so I suspect these will be satisfactory for outpatient management. She will receive 8 additional doses of cephalexin. I will contact Alysha Garcia if her urine culture reveals a bacteria resistant to this antibiotic. Also noted during the hospital stay were hallucinations where the patient reported seeing slugs on her hand. Her son reports that this has been present for approximately 2 weeks. It is not entirely clear if this is related to a smoldering infection or if this is progression of her cerebrovascular disease and dementia. She may be a good candidate for low-dose antipsychotic taken at bedtime if treating the infection does not clear up the hallucinations. I would consider starting risperidone 0.25 mg at bedtime if she has ongoing difficulty with the hallucinations. - Patient Instructions Diet: Regular Diet as Tolerated Activity: As Tolerated Showering/Bathing: May Shower Notify Provider of: Fever, Increased Pain, Nausea and/or Vomiting Other/Special Instructions: 1. You were in the hospital for observation and management of nausea and vomiting thought secondary to a urinary tract infection. Your symptoms have improved with IV fluids and symptomatic management. Antibiotics have been initiated. I do recommend 8 additional doses of cephalexin (Keflex) 500 mg. This antibiotic should be taken twice daily for 8 more doses with your next dose being due tonight. 2. Continue your other home medications as previously prescribed. 3. Seek medical attention if you develop fever greater than 101, have persistent vomiting, severe diarrhea or severe abdominal pain. - Discharge Plan Prescriptions/Med Rec: Cephalexin 500 mg PO BID #8 capsule Home Medications: Home Meds Aspirin [Halfprin] 162 mg PO DAILY 03/13/13 [History] Metoprolol Tartrate 12.5 mg PO BID 03/13/13 [History] levETIRAcetam [Keppra] 500 mg PO BID 03/13/13 [History] traZODone 25 mg PO DAILY 10/17/14 [History] Gabapentin [Neurontin] 100 mg PO DAILY 09/16/15 [History] Sertraline [Zoloft] 150 mg PO DAILY 09/16/15 [History] Cyanocobalamin (Vitamin B12) [Vitamin B12] 2,500 mcg PO DAILY 09/18/15 [History] *Ditropan 5 mg PO DAILY 07/14/17 [History] Donepezil [Aricept] 5 mg PO DAILY 07/14/17 [History] Fish Oil/[place]-3 Fatty Acids [Fish Oil] 1,200 mg PO DAILY 07/14/17 [History] Magnesium Oxide [Magnesium] 400 mg PO DAILY 07/14/17 [History] Multivitamin [Daily Multiple Vitamin] 1 tab PO DAILY 07/14/17 [History] Pantoprazole [ProTONIX] 40 mg PO DAILY 07/14/17 [History] Simvastatin 40 mg PO DAILY 07/14/17 [History] Cholecalciferol (Vitamin D3) [Vitamin D3] 1 tab PO BID 08/24/17 [History] Lisinopril 10 mg PO DAILY 08/24/17 [History] Ondansetron [Zofran ODT] 4 mg PO ASDIRECTED PRN 08/24/17 [History] Warfarin [Coumadin] 1.25 mg PO ASDIRECTED 08/24/17 [History] Warfarin [Coumadin] 2.5 mg PO ASDIRECTED 08/24/17 [History] Cephalexin 500 mg PO BID #8 capsule 08/25/17 [Rx] Patient Handouts: Urinary Tract Infection, Adult, Cephalexin tablets or capsules Referrals: Libra Paige PA [Primary Care Provider] - 08/30/17 3:30 pm - Discharge Summary/Plan Comment DC Time >30 min.: No (25) - Patient Data Vitals - Most Recent: Last Vital Signs Temp 36.7 C 08/25/17 08:00 Pulse 63 08/25/17 08:00 Resp 18 08/25/17 08:00 BP 139/66 08/25/17 08:00 Pulse Ox 97 08/25/17 08:00 Weight - Most Recent: 56.5 kg I&O - Last 24 hours: Intake & Output 08/24/17 08/25/17 08/25/17 22:59 06:59 14:59 Intake Total 1498 Output Total 200 Balance 1298 Lab Results - Last 24 hrs: Laboratory Results - last 24 hr 08/24/17 08/24/17 08/24/17 Range/Units 22:05 22:39 22:39 WBC 5.5 (4.5-11.0) K/uL RBC 4.67 (3.30-5.50) M/uL Hgb 14.9 (12.0-15.0) g/dL Hct 45.4 (36.0-48.0) % MCV 97 (80-98) fL MCH 32 H (27-31) pg MCHC 33 (32-36) % Plt Count 110 L (150-400) K/uL Neut % (Auto) 61 (36-66) % Lymph % (Auto) 28 (24-44) % [place] % (Auto) 9 H (2-6) % Eos % (Auto) 2 (2-4) % Baso % (Auto) 0 (0-1) % PT 24.9 H (9.5-12.0) sec INR 2.25 H D (0.80-1.20) Sodium (140-148) mmol/L Potassium (3.6-5.2) mmol/L Chloride (100-108) mmol/L Carbon Dioxide (21-32) mmol/L Anion Gap (5.0-14.0) mmol/L BUN (7-18) mg/dL Creatinine (0.6-1.0) mg/dL Est Cr Clr Drug Dosing mL/min Estimated GFR (MDRD) (>60) Glucose (74-106) mg/dL Lactic Acid (0.4-2.0) mmol/L Calcium (8.5-10.1) mg/dL Total Bilirubin (0.2-1.0) mg/dL AST (15-37) U/L ALT (12-78) U/L Alkaline Phosphatase (46-116) U/L Troponin I (0.000-0.056) ng/mL Total Protein (6.4-8.2) g/dL Albumin (3.4-5.0) g/dL Globulin (2.3-3.5) g/dL Albumin/Globulin Ratio (1.2-2.2) Amylase (25-115) U/L Lipase (73-393) U/L Urine Color Yellow Urine Appearance Cloudy Urine pH 7.0 (4.5-8.0) Ur Specific [place] 1.010 (1.008-1.030) Urine Protein Negative (NEGATIVE) mg/dL Urine Glucose (UA) Normal (NEGATIVE) mg/dL Urine Ketones 15 H (NEGATIVE) mg/dL Urine Occult Blood Negative (NEGATIVE) Urine Nitrite Negative (NEGATIVE) Urine Bilirubin Small (NEGATIVE) Urine Urobilinogen 4 (NORMAL) mg/dL Ur Leukocyte Esterase Large (NEGATIVE) Urine RBC 0-5 (0-5) Urine WBC 50-75 H (0-5) Ur Epithelial Cells Moderate Amorphous Sediment Not seen Urine Bacteria Many Urine Mucus Moderate 08/24/17 08/24/17 08/25/17 Range/Units 22:39 22:39 04:45 WBC 4.2 L (4.5-11.0) K/uL RBC 3.88 (3.30-5.50) M/uL Hgb 12.3 D (12.0-15.0) g/dL Hct 37.9 (36.0-48.0) % MCV 98 (80-98) fL MCH 32 H (27-31) pg MCHC 33 (32-36) % Plt Count 91 L (150-400) K/uL Neut % (Auto) 61 (36-66) % Lymph % (Auto) 29 (24-44) % [place] % (Auto) 8 H (2-6) % Eos % (Auto) 1 L (2-4) % Baso % (Auto) 1 (0-1) % PT (9.5-12.0) sec INR (0.80-1.20) Sodium 147 (140-148) mmol/L Potassium 3.9 (3.6-5.2) mmol/L Chloride 108 (100-108) mmol/L Carbon Dioxide 33 H (21-32) mmol/L Anion Gap 9.9 (5.0-14.0) mmol/L BUN 21 H (7-18) mg/dL Creatinine 1.1 H (0.6-1.0) mg/dL Est Cr Clr Drug Dosing 37.11 mL/min Estimated GFR (MDRD) 50 L (>60) Glucose 98 (74-106) mg/dL Lactic Acid 1.0 (0.4-2.0) mmol/L Calcium 8.9 (8.5-10.1) mg/dL Total Bilirubin 0.4 (0.2-1.0) mg/dL AST 51 H (15-37) U/L ALT 43 (12-78) U/L Alkaline Phosphatase 82 (46-116) U/L Troponin I 0.075 H* (0.000-0.056) ng/mL Total Protein 7.0 (6.4-8.2) g/dL Albumin 3.7 (3.4-5.0) g/dL Globulin 3.3 (2.3-3.5) g/dL Albumin/Globulin Ratio 1.1 L (1.2-2.2) Amylase 104 (25-115) U/L Lipase 145 (73-393) U/L Urine Color Urine Appearance Urine pH (4.5-8.0) Ur Specific [place] (1.008-1.030) Urine Protein (NEGATIVE) mg/dL Urine Glucose (UA) (NEGATIVE) mg/dL Urine Ketones (NEGATIVE) mg/dL Urine Occult Blood (NEGATIVE) Urine Nitrite (NEGATIVE) Urine Bilirubin (NEGATIVE) Urine Urobilinogen (NORMAL) mg/dL Ur Leukocyte Esterase (NEGATIVE) Urine RBC (0-5) Urine WBC (0-5) Ur Epithelial Cells Amorphous Sediment Urine Bacteria Urine Mucus 08/25/17 08/25/17 08/25/17 Range/Units 04:45 04:45 10:51 WBC (4.5-11.0) K/uL RBC (3.30-5.50) M/uL Hgb (12.0-15.0) g/dL Hct (36.0-48.0) % MCV (80-98) fL MCH (27-31) pg MCHC (32-36) % Plt Count (150-400) K/uL Neut % (Auto) (36-66) % Lymph % (Auto) (24-44) % [place] % (Auto) (2-6) % Eos % (Auto) (2-4) % Baso % (Auto) (0-1) % PT 25.4 H (9.5-12.0) sec INR 2.29 H (0.80-1.20) Sodium 145 (140-148) mmol/L Potassium 4.3 (3.6-5.2) mmol/L Chloride 111 H (100-108) mmol/L Carbon Dioxide 31 (21-32) mmol/L Anion Gap 7.3 (5.0-14.0) mmol/L BUN 18 (7-18) mg/dL Creatinine 0.9 (0.6-1.0) mg/dL Est Cr Clr Drug Dosing 56.33 mL/min Estimated GFR (MDRD) > 60 (>60) Glucose 116 H (74-106) mg/dL Lactic Acid (0.4-2.0) mmol/L Calcium 8.3 L (8.5-10.1) mg/dL Total Bilirubin (0.2-1.0) mg/dL AST (15-37) U/L ALT (12-78) U/L Alkaline Phosphatase (46-116) U/L Troponin I 0.083 H* 0.050 (0.000-0.056) ng/mL Total Protein (6.4-8.2) g/dL Albumin (3.4-5.0) g/dL Globulin (2.3-3.5) g/dL Albumin/Globulin Ratio (1.2-2.2) Amylase (25-115) U/L Lipase (73-393) U/L Urine Color Urine Appearance Urine pH (4.5-8.0) Ur Specific [place] (1.008-1.030) Urine Protein (NEGATIVE) mg/dL Urine Glucose (UA) (NEGATIVE) mg/dL Urine Ketones (NEGATIVE) mg/dL Urine Occult Blood (NEGATIVE) Urine Nitrite (NEGATIVE) Urine Bilirubin (NEGATIVE) Urine Urobilinogen (NORMAL) mg/dL Ur Leukocyte Esterase (NEGATIVE) Urine RBC (0-5) Urine WBC (0-5) Ur Epithelial Cells Amorphous Sediment Urine Bacteria Urine Mucus Med Orders - Current: Current Medications Acetaminophen (Tylenol) 650 mg PO Q4H PRN PRN Reason: Pain (Mild 1-3)/fever Albuterol (Proventil Neb Soln) 2.5 mg NEB Q4H PRN PRN Reason: Shortness Of Breath/wheezing Cephalexin (Keflex) 500 mg PO BID [facility] Last Admin: 08/25/17 09:21 Dose: 500 mg Donepezil HCl (Aricept) 5 mg PO DAILY [facility] Gabapentin (Neurontin) 100 mg PO DAILY [facility] Levetiracetam (Keppra) 500 mg PO BID [facility] Last Admin: 08/25/17 01:26 Dose: 500 mg Lisinopril (Prinivil) 10 mg PO DAILY [facility] Lorazepam (Ativan) 1 mg IV Q6H PRN PRN Reason: Nausea/Vomiting Magnesium Oxide (Magnesium Oxide) 400 mg PO DAILY [facility] Metoprolol Tartrate (Lopressor) 12.5 mg PO BID [facility] Morphine Sulfate (Morphine) 2 mg IVPUSH Q2H PRN PRN Reason: Pain (severe 7-10) Nitroglycerin (Nitrostat) 0.4 mg SL Q5M PRN PRN Reason: Chest Pain Stop: 08/26/17 00:03 Ondansetron HCl (Zofran Odt) 4 mg PO Q6H PRN PRN Reason: Nausea able to take PO Last Admin: 08/25/17 03:47 Dose: 4 mg Ondansetron HCl (Zofran) 4 mg IV Q4H PRN PRN Reason: Nausea/Vomiting Last Admin: 08/25/17 01:17 Dose: 4 mg Oxycodone HCl (Oxycodone) 5 mg PO Q4H PRN PRN Reason: Pain (moderate 4-6) Pantoprazole Sodium (Protonix) 40 mg PO ACBREAKFAST [facility] Sertraline HCl (Zoloft) 150 mg PO DAILY [facility] Simvastatin (Zocor) 40 mg PO BEDTIME [facility] Trazodone HCl (Trazodone) 25 mg PO DAILY [facility] Warfarin Sodium (Coumadin) 1.25 mg PO MoTuWeFr@1300 [facility] Warfarin Sodium (Coumadin) 2.5 mg PO SuThSa@1300 [facility] Discontinued Medications Sodium Chloride (Normal Saline) 1,000 mls @ 999 mls/hr IV ASDIRECTED [facility] Last Admin: 08/24/17 22:40 Dose: 999 mls/hr Dextrose/Lactated Ringer's (Dextrose 5%-Lactated Ringers) 1,000 mls @ 100 mls/ hr IV ASDIRECTED [facility] Last Admin: 08/24/17 23:43 Dose: 100 mls/hr Ondansetron HCl (Zofran) 4 mg IVPUSH ONETIME ONE Stop: 08/24/17 22:07 Last Admin: 08/24/17 22:42 Dose: 4 mg - Exam Quality Assessment: Reports: Supplemental Oxygen General: Reports: Alert, Cooperative, No Acute Distress. Denies: Oriented Neck: Reports: Supple Lungs: Reports: Normal Respiratory Effort GI/Abdominal Exam: Soft, No Distention Extremities: No Pedal Edema Psy/Mental Status: Reports: Alert, Normal Affect
[2017-08-25] MEDS ORDERED: Warfarin 2.5 MG Tab PO SCH (13:00)
[2017-08-25] MEDS ORDERED: Simvastatin 20 MG Tab PO SCH (21:00)
[2017-08-26] MEDS ORDERED: Warfarin 2.5 MG Tab PO SCH (13:00)
== END 2017-08-25 13:15 | disposition home or self-care (01) ==
LOC: JP.ED 20:32 → JP.ICU 23:54
PROVIDERS: ADMIT Internal Medicine; ATTEND Internal Medicine
DX: N30.00 Acute cystitis without hematuria (principal); R11.10 Vomiting, unspecified; R74.8 Abnormal levels of other serum enzymes; I10 Essential (primary) hypertension; E78.00 Pure hypercholesterolemia, unspecified; K59.09 Other constipation; K21.9 Gastro-esophageal reflux disease without esophagitis; F32.9 Major depressive disorder, single episode, unspecified; E11.9 Type 2 diabetes mellitus without complications; G47.30 Sleep apnea, unspecified; Z98.84 Bariatric surgery status; Z86.73 Personal history of transient ischemic attack (TIA), and cerebral infarction without residual deficits; Z79.82 Long term (current) use of aspirin; Z79.899 Other long term (current) drug therapy; Z79.01 Long term (current) use of anticoagulants; Z88.8 Allergy status to other drugs, medicaments and biological substances; Z95.2 Presence of prosthetic heart valve
CPT/HCPCS: 36415; 70450; 74176; 80048; 80053; 81001; 82150; 83605; 83690; 84484; 85025; 85610; 87086; 93005; 96361; 96374; 99285; A9270; J2405; J7040; J7042

== ENCOUNTER 2017-09-11 07:03 | Day surgery (SDC) | payer MEDICARE ==
[~2017-09-11 07:03] MED LIST: Midazolam 1 MG/ML 2 ML SDV ONE; Propofol 200 MG/20 ML SDV ONE; fentaNYL 100 MCG/2 ML SDV ONE
[2017-09-11] MEDS ORDERED: Glycopyrrolate 0.2 MG/ML 2 ML SDV IVPUSH ONE (07:45)
[2017-09-11] MEDS ORDERED: Dextrose 5%-Lactated Ringers 1,000 ML IV SCH (07:45)
[2017-09-11] MEDS ORDERED: Pantoprazole 40 MG Vial IVPUSH ONE (08:59)
[2017-09-11 11:24] VITALS: BP 118/75
--- NOTE | 2017-09-17 13:21 | OR ---
DATE OF PROCEDURE: 09/11/2017 PREOPERATIVE DIAGNOSIS: Dysphagia, status post Joseph-en-Y gastric bypass. POSTOPERATIVE DIAGNOSES: 1. 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 2. 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 OPERATIVE PROCEDURES: Upper GI endoscopy with: 1. Dilation of gastrojejunostomy (57090). 2. Removal of foreign body (old ingested meat) from distal esophagus and the gastric pouch ([id number]). ANESTHESIA: General. DETAILS OF PROCEDURE: The patient was placed in the left lateral decubitus position. IV sedation was administered, after which the upper GI endoscope was passed orally through the length of the esophagus and into the area of the gastric pouch. The patient was noted to have a moderate stricturing of the gastrojejunostomy with a large portion of meat acting more or less as a ball valve at that level causing an obstruction. Initially, gastrointestinal balloon catheter was centered across the anastomosis and inflated to 45- [place] size. This was then increased to 54-[place] balloon catheter, which was inflated and held in position for 1 minute. At that point, the meat still would not go through the anastomosis. This was initially attempted to be addressed with endoscopic baskets, which were unsuccessful due to the large size of the meat present. A three-prong grasp was then used, which was then successful in removing the meat transorally. At that point, the scope was placed back in and no complications were noted, and the scope was withdrawn. The procedure was concluded. The patient was taken to the recovery room in a satisfactory condition. Slade Cox MD /[id number]
== END 2017-09-11 11:15 | disposition other institution (70) ==
LOC: JP.SDS 07:03
PROVIDERS: ATTEND Surgery
DX: T18.128A Food in esophagus causing other injury, initial encounter (principal); K29.70 Gastritis, unspecified, without bleeding; K31.89 Other diseases of stomach and duodenum; X58.XXXA Exposure to other specified factors, initial encounter; Z88.8 Allergy status to other drugs, medicaments and biological substances; Z98.84 Bariatric surgery status
CPT/HCPCS: 36415; 43245; 43247; 85610; C9113; J2704; J3010; J7042; J2250; J3490